=== PATIENT | male | born 1965 | race Caucasian/White ===

== ENCOUNTER 2016-04-23 11:27 | Emergency (ER) | payer BC ==
[~2016-04-23] VITALS: Wt 85.0 kg
[2016-04-23] MEDS ORDERED: SOD CHLORIDE 0.9% 1,000 ML IV STA (13:43)
[2016-04-23] MEDS ORDERED: MECLIZINE 12.5 MG TAB PO ONE (14:00)
--- NOTE | 2016-04-23 14:10 | RADRPT ---
PROCEDURE: XR Chest. CLINICAL INDICATION: Possible stroke. TECHNIQUE: Single frontal view of the chest was obtained COMPARISON: No. FINDINGS: The cardiomediastinal silhouette, pulmonary vasculature and rupal are unremarkable. The lungs are cl ear. There are degenerative osteophytes in the thoracic spine. The soft tissues are normal. No acut e infiltrate is noted. Monitoring electrodes are draped across the chest. IMPRESSION: 1. There is no evidence of active cardiopulmonary disease. No acute infiltrate is identified. 2. Spondylosis of the thoracic spine. RPTAT:AAJJ Physician Anjelica Date Time Electronically viewed and signed by Physician Anjelica on 04/23/2016 14:10 /
[2016-04-23 14:14] LABS: ADD SCAN DIFF NO
[2016-04-23 14:16] LABS: BASOPHILS % 0.1 % (0.0-2.0); EOSINOPHILS # 0.2 10^3/ul (0.0-0.5); EOSINOPHILS % 1.7 % (0.0-7.0); HEMATOCRIT 47.4 % (42.0-52.0); HEMOGLOBIN 15.7 g/dl (14.0-18.0); LYMPHOCYTES # 3.2 10^3/ul (0.8-2.9); LYMPHOCYTES % 33.6 % (15.0-51.0); MEAN CORPUSCULAR HEMOGLOBIN 29.4 pg (29.0-33.0); MEAN CORPUSCULAR HGB CONC 33.1 g/dl (32.0-37.0); MEAN CORPUSCULAR VOLUME 88.8 fl (82.0-101.0); MEAN PLATELET VOLUME 10.2 fl (7.4-10.4); MONOCYTE # 0.4 10^3/ul (0.3-0.9); MONOCYTES % 4.1 % (0.0-11.0); NEUTROPHIL # 5.8 10^3/ul (1.6-7.5); NEUTROPHILS % 60.1 % (39.0-77.0); PLATELET COUNT 195 10^3/UL (140-415); RED BLOOD COUNT 5.34 10^6/ul (4.70-6.10); RED CELL DISTRIBUTION WIDTH 13.6 % (11.5-14.5); WHITE BLOOD COUNT 9.6 10^3/ul (4.8-10.8)
[2016-04-23 14:18] LABS: ADD UMIC NO; URINE BILIRUBIN (Dip) NEGATIVE (NEGATIVE); URINE BLOOD (Dip) NEGATIVE (NEGATIVE); URINE COLOR LT. YELLOW (YELLOW); URINE GLUCOSE (Dip) NEGATIVE (NEGATIVE); URINE KETONES (Dip) NEGATIVE (NEGATIVE); URINE LEUKOCYTE ESTERASE (Dip) NEGATIVE (NEGATIVE); URINE NITRITE (Dip) NEGATIVE (NEGATIVE); URINE TOTAL PROTEIN (Dip) NEGATIVE (NEGATIVE); URINE UROBILINOGEN (Dip) 0.2 E.U./dL (0.1-1.0)
--- NOTE | 2016-04-23 14:41 | RADRPT ---
PROCEDURE: US Carotids. CLINICAL INDICATION: StroKe. TECHNIQUE: Multiple sonographic of the carotid arteries were obtained utilizing morrison scale imaging . Color and Doppler imaging was performed. The images were reviewed on a PACS workstation. COMPARISON: No prior studies are available for comparison. FINDINGS: Location Right Left CCA 115 cm/sec 83 cm/sec Prox ICA 43 cm/sec 30 cm/sec Mid ICA 47 cm/sec 59 cm/sec Dist ICA 43 cm/sec 48 cm/sec ECA 59 cm/sec 38 cm/sec ICA/CCA 0.5 1.0 Antegrade flow is seen within the vertebral arteries bilaterally. No significant plaque is seen with in the carotid system bilaterally. No hemodynamically significant stenosis or occlusion is identifi ed. IMPRESSION: 1. No evidence for hemodynamically significant stenosis - validated velocity measurements with angio graphic measurements, velocity criteria are extrapolated from diameter data as defined by the Societ y of Radiologists in Ultrasound Consensus Conference Radiology 2003; 229;340-346. This study does i ndirectly reference the measurement of the distal ICA diameter as the denominator for stenosis measu rement. 2. Antegrade flow seen within the vertebral arteries bilaterally. SRU Consensus Conference Criteria for the Diagnosis of Carotid Artery Stenosis Degree of Stenosis, % ICA PSV, cm/sec Plaque Estimate, % ICA/CCA PSV Ratio Normal <125 None <2.0 <50 <125 <50 <2.0 50 69 125-230 >50 2.0-4.0 >70 but less than near occlusion >230 >50 <4.0 Near occlusion High, low, or undetectable Visible Variable Total occlusion Undetectable Visible, no detectable lumen Not applicable *Cartoid artery stenosis: morrison-scale and Doppler US diagnosis. Society of Radiologists in Ultrasound Consensus Conference. Radiology 2003; 229: 340-346 RPTAT: JJ .Joel Hinton MD, Date Time Electronically viewed and signed by .Joel Hinton MD, MD on 04/23/2016 14:41 .A/
[2016-04-23 14:44] LABS: CHLORIDE 106 mmol/L (97-110); SODIUM 144 mmol/L (135-144)
[2016-04-23 14:45] LABS: POTASSIUM 3.6 mmol/L (3.5-5.1)
[2016-04-23 14:46] LABS: INR 0.93; PARTIAL THROMBOPLASTIN TIME 27.4 Sec (25.0-35.0); PROTIME 12.5 Sec (12.2-14.2)
[2016-04-23 14:47] LABS: ANION GAP 15 (8-16); BARBITURATES NEGATIVE (NEGATIVE); BENZODIAZEPINES NEGATIVE (NEGATIVE); CANNABINOIDS NEGATIVE (NEGATIVE); CARBON DIOXIDE 27 mmol/L (21-31); COCAINE NEGATIVE (NEGATIVE); CREATININE 0.71 mg/dl (0.61-1.24); OPIATES NEGATIVE (NEGATIVE)
[2016-04-23 14:48] LABS: BLOOD UREA NITROGEN 18 mg/dl (7-20); CALCIUM 8.9 mg/dl (8.4-10.2); GLUCOSE 124 mg/dl (70-220)
--- NOTE | 2016-04-23 14:58 | RADRPT ---
PROCEDURE: CT brain without contrast CLINICAL INDICATION: Dizziness TECHNIQUE: CT of the brain without contrast performed on a multidetector CT scanner, with multiplan ar reformats. One or more of the following dose reduction techniques were used: Automated exposure control, adjustment in mA and / or kV according to patient size, use of iterative reconstructive pierre hnique. CTDIvol = 44 mGy; DLP = 630 mGy-cm. COMPARISON: None available FINDINGS: No acute intracranial hemorrhage is identified. No extra-axial fluid collection is seen. There is no mass effect. No midline shift is identified. Ventricles and sulci are within normal limits for size and configuration. The density of the brain is within normal limits. Castillo-white differentiation is preserved. Osseous structures are unremarkable. Mastoid air cells and imaged paranasal sinuses grossly clear. IMPRESSION: Unremarkable noncontrast CT of the brain. RPTAT: VV .Sina Lebron MD, Date Time Electronically viewed and signed by .Sina Lebron MD, on 04/23/2016 14:58 .O/
[2016-04-23 15:04] LABS: TROPONIN-I < 0.012 ng/ml (0.00-0.12)
[2016-04-23] MEDS ORDERED: MECL12.574 PO (15:08)
[2016-04-23 15:20] VITALS: BP 139/78; PULSE 79; RESP 18; TEMP 98
--- NOTE | 2016-04-23 15:50 | ERD ---
ER Documentation Chief Complaint Date/Time DATE: 04/23/16 TIME: 15:43 Chief Complaint DIZZINESS STARTED THIS MORNING HPI Patient is a 51-year-old male with no medical problems who presents with dizziness. The patient says that he has had this 2 times in the last 7 days and it happens in the morning only. Symptoms lasted 1 hour each time. He felt dizzy and felt like "the room was spinning". He was working under a car when it happened and had his arms above his head. Upon review of old medical records this is the patient's first visit to the ER. He does not know the name of his primary doctor. ROS All systems reviewed and are negative except as per history of present illness. Medications Home Meds Active Scripts Meclizine Hcl* (Antivert*) 12.5 Mg Tab, 25 MG PO Q6H Y for DIZZINESS, #20 TAB Prov:WILMAN HUTCHISON MD 04/23/16 Allergies Allergies: Coded Allergies: No Known Allergy (Unverified , 04/23/16) PMhx/Soc Medical and Surgical Hx: pt denies Medical Hx, pt denies Surgical Hx Hx Alcohol Use: Yes Hx Substance Use: No Hx Tobacco Use: Yes Smoking Status: Current every day smoker FmHx Family History: diabetes Physical Exam Vitals Vital Signs Date Time Temp Pulse Resp B/P Pulse Ox O2 Delivery O2 Flow Rate FiO2 04/23/16 15:20 98.0 79 18 139/78 99 Room Air 04/23/16 14:10 76 18 124/82 99 Room Air 04/23/16 11:33 98.0 78 18 143/75 99 Physical Exam Const: No acute distress Head: Atraumatic Eyes: Normal Conjunctiva ENT: Normal External Ears, Nose and Mouth. Neck: Full range of motion..~ No meningismus. Resp: Clear to auscultation bilaterally Cardio: Regular rate and rhythm, no murmurs Abd: Soft, non tender, non distended. Normal bowel sounds Skin: No petechiae or rashes Back: No midline or flank tenderness Ext: No cyanosis, or edema Neur: Awake and alert, no slurred speech, cranial nerves II through XII are intact, strength is 5 out of 5 in all 4 extremities, no pronator drift Psych: Normal Mood and Affect Result Diagram: 04/23/16 1400 04/23/16 1400 Results 24 hrs Laboratory Tests Test 04/23/16 13:43 04/23/16 14:00 Urine Bilirubin NEGATIVE Urine Clarity CLEAR Urine Color LT. YELLOW Urine Glucose NEGATIVE% Urine Hemoglobin NEGATIVE Urine Ketones NEGATIVE Urine Leukocyte Esterase NEGATIVE Urine Nitrite NEGATIVE Urine Specific [place] >=1.030 Urine Total Protein NEGATIVE Urine Urobilinogen 0.2 E.U./dL Urine pH 5.0 Activated Partial Thromboplast Time 27.4Sec Anion Gap 15 Basophils # 0.010^3/ul Basophils % 0.1% Blood Urea Nitrogen 18mg/dl Calcium Level 8.9mg/dl Carbon Dioxide Level 27mmol/L Chloride Level 106mmol/L Creatinine 0.71mg/dl Eosinophils # 0.210^3/ul Eosinophils % 1.7% Glucose Level 124mg/dl Hematocrit 47.4% Hemoglobin 15.7g/dl INR International Normalized Ratio 0.93 Lymphocytes # 3.210^3/ul Lymphocytes % 33.6% Mean Corpuscular Hemoglobin 29.4pg Mean Corpuscular Hemoglobin Concent 33.1g/dl Mean Corpuscular Volume 88.8fl Mean Platelet Volume 10.2fl Monocytes # 0.410^3/ul Monocytes % 4.1% Neutrophils # 5.810^3/ul Neutrophils % 60.1% Nucleated Red Blood Cells # 0.010^3/ul Nucleated Red Blood Cells % 0.0/100WBC Platelet Count 10581^3/UL Potassium Level 3.6mmol/L Prothrombin Time 12.5Sec Prothrombin Time Ratio 1.0 Red Blood Count 5.3410^6/ul Red Cell Distribution Width 13.6% Sodium Level 144mmol/L Troponin I < 0.012ng/ml Urine Amphetamines Screen NEGATIVE Urine Barbiturates NEGATIVE Urine Benzodiazepines Screen NEGATIVE Urine Cannabinoids NEGATIVE Urine Cocaine Screen NEGATIVE Urine Opiates Screen NEGATIVE White Blood Count 9.610^3/ul Current Medications Medications (Trade) Dose Ordered Sig/Tonya Route PRN Reason Start Time Stop Time Status Last Admin Dose Admin Sodium Chloride (NS) 1,000 ml @ 1,000 mls/hr Q1H STAT IV 04/23/16 13:43 04/23/16 14:42 DC 04/23/16 13:58 Meclizine HCl (Antivert) 25 mg ONCE ONCE PO 04/23/16 14:00 04/23/16 14:01 DC 04/23/16 13:57 Procedures/MDM EKG read by me: Rate/Rhythm: Regular rate and rhythm at a normal rate Intervals: Normal Impression: No evidence of ischemia or arrhythmia CT head negative per radiology. Ultrasound of the neck negative per radiology. Smoking Cessation Therapy: Pt. was lectured for greater than 3 minutes on the health risks of continued smoking and the benefits of cessation. Patient is a 51-year-old male who smokes but without other medical problems who presents with dizziness. His symptoms are consistent with vertigo. Laboratory studies are normal. CT head is negative. Ultrasound of the neck is negative. EKG shows no signs of ischemia. At this point I doubt stroke, intracranial mass , hemorrhage, or acute coronary syndrome. The patient was given meclizine for symptoms. He was also given 1 L of normal saline. At this point I believe outpatient management is appropriate but the patient will need to follow-up closely with his primary doctor within 24-48 hours. Departure Diagnosis: Primary Impression: Dizziness Condition: Fair Patient Instructions: Dizziness, Unk Cause Referrals: Your doctor Additional Instructions: Call your primary care doctor TOMORROW for an appointment during the next 1-2 days.See the doctor sooner or return here if your condition worsens before your appointment time. WILMAN HUTCHISON MD Apr 23, 2016 15:50
== END 2016-04-23 15:20 | disposition home or self-care (01) ==
LOC: E/R 11:27
DX: R42 Dizziness and giddiness (principal); R40.2252 Coma scale, best verbal response, oriented, at arrival to emergency department; F17.210 Nicotine dependence, cigarettes, uncomplicated; R40.2362 Coma scale, best motor response, obeys commands, at arrival to emergency department; R40.2142 Coma scale, eyes open, spontaneous, at arrival to emergency department
CPT/HCPCS: 36415; 70450; 71010; 80048; 80307; 81003; 83036; 84484; 85025; 85610; 85730; 93880; 99285; J7030; Z7610